=== PATIENT | male | born 1945 | race Two or more races ===

== ENCOUNTER 2018-04-05 18:59 | Inpatient (IN) | payer MEDICARE, MEDICAID ==
[~2018-04-05] VITALS: Ht 175.3 cm; Wt 61.5 kg
[~2018-04-05 18:59] MED LIST: ALBU18HF INH; AMLO10TA6 PO; ASPI-650 PO; ATOR40TA78 PO; CHOL2400 PO; FURO-93 PO; INSU100I18 SQ-INSULIN; INSU100V8 SQ; IRON1TAB62 PO; LEVO75TA PO; LISI-420 PO; LISI5TAB7 PO; METO25TA35 PO; METO25TA4 PO
[2018-04-05] MEDS ORDERED: ASPIRIN 81 MG TABLET CHEW PO ONE (19:30)
[2018-04-05] MEDS ORDERED: SODIUM CHLORIDE FLUSH 10ML SYR IVF ONE (19:30)
[2018-04-05] MEDS ORDERED: ONDANSETRON ODT 4 MG PO ONE (19:30)
[2018-04-05 19:51] LABS: BASOPHILS # (AUTO) 0.04 x10^3/uL (0-0.1); BASOPHILS % (AUTO) 1 % (0-1); EOSINOPHILS # (AUTO) 0.12 x10^3/uL (0-0.4); EOSINOPHILS % (AUTO) 2 % (1-7); LYMPHOCYTES # (AUTO) 1.63 x10^3/uL (1-3.4); LYMPHOCYTES % (AUTO) 26 % (22-44); MD NO; MEAN CORPUSCULAR HEMOGLOBIN 30.5 pg (27.5-34.5); MEAN CORPUSCULAR HGB CONC 34.1 g/dL (33.2-36.2); MEAN CORPUSCULAR VOLUME 89.7 fL (81-97); MEAN PLATELET VOLUME 11.1 fL (7.4-10.4); MONOCYTES # (AUTO) 0.56 x10^3/uL (0.2-0.8); MONOCYTES % (AUTO) 9 % (2-9); NEUTROPHILS % (AUTO) 63 % (42-75); PLATELET COUNT 117 x10^3/uL (130-400); RED BLOOD COUNT 3.66 x10^6/uL (4.38-5.82)
[2018-04-05 20:02] LABS: INTERNATIONAL NORMALIZED RATIO 1.06 (0.93-1.1)
[2018-04-05 20:04] LABS: ALBUMIN 3.1 g/dL (3.4-5.0); ANION GAP 12 mmol/L (5-15); CALCIUM 8.5 mg/dL (8.5-10.1); CHLORIDE 107 mmol/L (98-107)
[2018-04-05 20:10] LABS: ALANINE AMINOTRANSFERASE 27 U/L (12-78); ALKALINE PHOSPHATASE 117 U/L (45-117); BILIRUBIN,TOTAL 0.5 mg/dL (0.2-1.0); CREATININE 5.77 mg/dL (0.7-1.3); TOTAL PROTEIN 6.7 g/dL (6.4-8.2); TROPONIN I 0.078 ng/mL (0.000-0.045)
[2018-04-05] MEDS ORDERED: ONDANSETRON ODT 4 MG ONE (20:12)
[2018-04-05] MEDS ORDERED: ASPIRIN 81 MG TABLET CHEW ONE (20:12)
[2018-04-05] MEDS ORDERED: ATOR40TA78 PO (20:50)
[2018-04-05] MEDS ORDERED: METO25TA2 PO (20:50)
[2018-04-05] MEDS ORDERED: TAMS-11 PO (20:50)
[2018-04-05] MEDS ORDERED: FINA5TAB PO (20:50)
[2018-04-05] MEDS ORDERED: TRAZ150T62 PO (20:50)
[2018-04-05] MEDS ORDERED: POLY17PO5 PO (20:50)
[2018-04-05] MEDS ORDERED: SODIUM BICARBONATE 8.4% 100 MEQ in SODIUM CHLORIDE 0.45% 1,000 ML IV SCH (21:00)
[2018-04-05 21:06] LABS: MICROSCOPIC AUTO
[2018-04-05 21:08] LABS: CULTURE INDICATED? YES
[2018-04-05] MEDS ORDERED: CEFTRIAXONE 1,000 MG in SODIUM CHLORIDE 0.9% 50 ML IV ONE (21:30)
[2018-04-05] MEDS: INSULIN LISPRO 100 UNITS/ML, PEN SQ-INSULIN SCH (22:00)
[2018-04-05] MEDS ORDERED: POLYETHYLENE GLYCOL 17 GM PACKET PO PRN (22:00)
[2018-04-05] MEDS: SODIUM BICARB 8.4%,50ML SYR. 100 MEQ in SODIUM CHLORIDE 0.45% 1,000 ML IV SCH (22:00)
[2018-04-05] MEDS ORDERED: NITROGLYCERIN 0.4 MG BOTTLE (25 TABS) SL PRN (22:00)
[2018-04-05] MEDS ORDERED: ONDANSETRON ODT 4 MG PO PRN (22:00)
[2018-04-05] MEDS: HEPARIN 5,000 UNITS/ML, 1ML SQ SCH (22:00)
[2018-04-05] MEDS: MULTIVITAMINS WITH IRON TABLET PO SCH (22:00)
[2018-04-05] MEDS ORDERED: morphine SULFATE 10 MG/ML, 1ML IVPush PRN (22:00)
[2018-04-05 22:45] VITALS: BP 147/82
[2018-04-05 22:50] LABS: HEMOGLOBIN A1C 7.5 % (4.2-6.3)
[2018-04-06 00:32] VITALS: BP 143/84
[2018-04-06] MEDS: CEFTRIAXONE 1,000 MG in SODIUM CHLORIDE 0.9% 50 ML IV SCH (01:25)
[2018-04-06] MEDS: TRAZODONE 150MG TABLET PO SCH ×2 (02:50→23:22)
[2018-04-06] MEDS: INSULIN LISPRO 100 UNITS/ML, PEN SQ-INSULIN SCH ×5 (04:00→23:23)
[2018-04-06] MEDS: HEPARIN 5,000 UNITS/ML, 1ML SQ SCH ×3 (04:56→23:23)
[2018-04-06] MEDS: SODIUM BICARB 8.4%,50ML SYR. 100 MEQ in SODIUM CHLORIDE 0.45% 1,000 ML IV SCH (06:46)
[2018-04-06 07:15] VITALS: BP 151/79
[2018-04-06 07:50] LABS: BASOPHILS # (AUTO) 0.03 x10^3/uL (0-0.1); BASOPHILS % (AUTO) 1 % (0-1); EOSINOPHILS % (AUTO) 2 % (1-7); LYMPHOCYTES # (AUTO) 1.98 x10^3/uL (1-3.4); LYMPHOCYTES % (AUTO) 31 % (22-44); MD NO; MEAN CORPUSCULAR HEMOGLOBIN 29.8 pg (27.5-34.5); MEAN CORPUSCULAR HGB CONC 33.7 g/dL (33.2-36.2); MEAN CORPUSCULAR VOLUME 88.4 fL (81-97); MEAN PLATELET VOLUME 10.8 fL (7.4-10.4); MONOCYTES # (AUTO) 0.49 x10^3/uL (0.2-0.8); MONOCYTES % (AUTO) 8 % (2-9); NEUTROPHILS # (AUTO) 3.79 x10^3/uL (1.8-6.8); NEUTROPHILS % (AUTO) 59 % (42-75); PLATELET COUNT 116 x10^3/uL (130-400); RED CELL DISTRIBUTION WIDTH 13.9 % (9.4-14.8)
[2018-04-06] MEDS ORDERED: REGADENOSON 0.4 MG/5 ML SYRINGE ONE (07:57)
[2018-04-06 08:01] LABS: ALANINE AMINOTRANSFERASE 27 U/L (12-78); ALBUMIN 3.1 g/dL (3.4-5.0); ANION GAP 15 mmol/L (5-15); CALCIUM 8.2 mg/dL (8.5-10.1); CHLORIDE 106 mmol/L (98-107)
[2018-04-06 08:04] LABS: ALKALINE PHOSPHATASE 102 U/L (45-117); BILIRUBIN,TOTAL 0.3 mg/dL (0.2-1.0); CREATININE 5.04 mg/dL (0.7-1.3); TOTAL PROTEIN 6.7 g/dL (6.4-8.2)
[2018-04-06] MEDS: LEVOTHYROXINE 75 MCG TABLET PO SCH (08:48)
[2018-04-06] MEDS ORDERED: CHOLECALCIFEROL 1,000 UNIT TABLET PO SCH (09:00)
[2018-04-06] MEDS: METOPROLOL TARTRATE 25 MG TABLET PO SCH ×2 (10:12→16:52)
[2018-04-06] MEDS: MULTIVITAMINS WITH IRON TABLET PO SCH ×2 (10:12→23:22)
[2018-04-06] MEDS: TAMSULOSIN 0.4 MG CAP.ER.24H PO SCH (10:12)
[2018-04-06] MEDS: ASPIRIN 325 MG TABLET EC PO SCH (10:12)
[2018-04-06] MEDS: SENNA/DOCUSATE TABLET PO SCH (10:12)
[2018-04-06] MEDS: FINASTERIDE 5 MG TABLET PO SCH (10:12)
[2018-04-06] MEDS: POTASSIUM CHLORIDE IV SCH (11:21)
[2018-04-06] MEDS: SODIUM BICARBONATE IV SCH (11:21)
[2018-04-06] MEDS: DEXTROSE 5% IV SCH (11:21)
[2018-04-06 13:47] LABS: TROPONIN I 0.114 ng/mL (0.000-0.045)
[2018-04-06 14:44] VITALS: BP 147/76
[2018-04-06 20:27] VITALS: BP 166/67
[2018-04-07 00:19] VITALS: BP 157/64
[2018-04-07] MEDS: SODIUM BICARBONATE IV SCH ×2 (00:23→09:35)
[2018-04-07] MEDS: POTASSIUM CHLORIDE IV SCH ×2 (00:23→09:35)
[2018-04-07] MEDS: DEXTROSE 5% IV SCH (00:23)
[2018-04-07] MEDS: CEFTRIAXONE 1,000 MG in SODIUM CHLORIDE 0.9% 50 ML IV SCH (01:04)
[2018-04-07 05:51] LABS: BASOPHILS # (AUTO) 0.02 x10^3/uL (0-0.1); BASOPHILS % (AUTO) 0 % (0-1); EOSINOPHILS # (AUTO) 0.09 x10^3/uL (0-0.4); EOSINOPHILS % (AUTO) 2 % (1-7); LYMPHOCYTES # (AUTO) 0.91 x10^3/uL (1-3.4); LYMPHOCYTES % (AUTO) 18 % (22-44); MD NO; MEAN CORPUSCULAR HEMOGLOBIN 30.2 pg (27.5-34.5); MEAN CORPUSCULAR HGB CONC 33.9 g/dL (33.2-36.2); MEAN CORPUSCULAR VOLUME 89.1 fL (81-97); MEAN PLATELET VOLUME 10.9 fL (7.4-10.4); MONOCYTES # (AUTO) 0.45 x10^3/uL (0.2-0.8); MONOCYTES % (AUTO) 9 % (2-9); NEUTROPHILS # (AUTO) 3.77 x10^3/uL (1.8-6.8); NEUTROPHILS % (AUTO) 72 % (42-75); PLATELET COUNT 101 x10^3/uL (130-400); RED BLOOD COUNT 3.64 x10^6/uL (4.38-5.82)
[2018-04-07 05:57] LABS: ALBUMIN 2.6 g/dL (3.4-5.0); CHLORIDE 103 mmol/L (98-107)
[2018-04-07] MEDS: LEVOTHYROXINE 75 MCG TABLET PO SCH (05:59)
[2018-04-07] MEDS: ACETAMINOPHEN 325 MG TABLET PO PRN ×2 (05:59→21:27)
[2018-04-07] MEDS: METOPROLOL TARTRATE 25 MG TABLET PO SCH ×2 (05:59→17:45)
[2018-04-07 06:03] VITALS: BP 143/73
[2018-04-07 06:11] LABS: % IRON SATURATION 43 % (20-55); ALANINE AMINOTRANSFERASE 28 U/L (12-78); ALKALINE PHOSPHATASE 139 U/L (45-117); ANION GAP 6 mmol/L (5-15); BILIRUBIN,TOTAL 0.3 mg/dL (0.2-1.0); CALCIUM 7.7 mg/dL (8.5-10.1); CREATININE 4.58 mg/dL (0.7-1.3); IRON LEVEL 97 mcg/dL (65-175); TOTAL IRON BINDING CAPACITY 224 mcg/dL (250-450); TOTAL PROTEIN 5.9 g/dL (6.4-8.2)
[2018-04-07] MEDS ORDERED: ERGOCALCIFEROL 50,000 UNIT CAPSULE PO SCH (07:30)
[2018-04-07] MEDS ORDERED: SODIUM BICARBONATE IV SCH (07:30)
[2018-04-07] MEDS ORDERED: POTASSIUM CHLORIDE IV SCH (07:30)
[2018-04-07] MEDS ORDERED: [UNRECOGNIZED DRUG - OTHER] IV SCH (07:30)
[2018-04-07] MEDS: SENNA/DOCUSATE TABLET PO SCH (09:00)
[2018-04-07 09:23] VITALS: BP 174/75
[2018-04-07] MEDS: [UNRECOGNIZED DRUG - OTHER] IV SCH (09:35)
[2018-04-07] MEDS: AMLODIPINE 5 MG TABLET PO SCH (09:35)
[2018-04-07] MEDS: TAMSULOSIN 0.4 MG CAP.ER.24H PO SCH (09:36)
[2018-04-07] MEDS: ASPIRIN 325 MG TABLET EC PO SCH (09:36)
[2018-04-07] MEDS: CALCITRIOL 0.25 MCG CAPSULE PO SCH (09:54)
[2018-04-07] MEDS: FINASTERIDE 5 MG TABLET PO SCH (09:54)
[2018-04-07] MEDS: MULTIVITAMINS WITH IRON TABLET PO SCH ×2 (09:54→21:27)
[2018-04-07] MEDS: INSULIN LISPRO 100 UNITS/ML, PEN SQ-INSULIN SCH ×4 (09:54→21:00)
[2018-04-07] MEDS: HEPARIN 5,000 UNITS/ML, 1ML SQ SCH ×2 (09:55→17:42)
[2018-04-07 14:59] VITALS: BP 92/57
[2018-04-07 17:46] VITALS: BP 101/58
[2018-04-07 18:42] VITALS: BP 129/57
[2018-04-07] MEDS: TRAZODONE 150MG TABLET PO SCH (21:28)
[2018-04-08] MEDS: CEFTRIAXONE 1,000 MG in SODIUM CHLORIDE 0.9% 50 ML IV SCH (00:17)
[2018-04-08] MEDS: HEPARIN 5,000 UNITS/ML, 1ML SQ SCH ×3 (00:18→16:56)
[2018-04-08 03:59] VITALS: BP 176/68
[2018-04-08 05:26] LABS: ALBUMIN 2.6 g/dL (3.4-5.0); ANION GAP 10 mmol/L (5-15); CALCIUM 7.9 mg/dL (8.5-10.1); CHLORIDE 103 mmol/L (98-107)
[2018-04-08 05:29] LABS: ALANINE AMINOTRANSFERASE 26 U/L (12-78); ALKALINE PHOSPHATASE 90 U/L (45-117); BILIRUBIN,TOTAL 0.3 mg/dL (0.2-1.0); CREATININE 4.49 mg/dL (0.7-1.3); TOTAL PROTEIN 5.8 g/dL (6.4-8.2)
[2018-04-08] MEDS: SODIUM BICARBONATE IV SCH (05:30)
[2018-04-08] MEDS: [UNRECOGNIZED DRUG - OTHER] IV SCH (05:30)
[2018-04-08] MEDS: POTASSIUM CHLORIDE IV SCH (05:30)
[2018-04-08] MEDS: INSULIN LISPRO 100 UNITS/ML, PEN SQ-INSULIN SCH ×4 (06:25→20:54)
[2018-04-08 07:36] VITALS: BP 178/68
[2018-04-08] MEDS: AMLODIPINE 5 MG TABLET PO SCH (09:07)
[2018-04-08] MEDS: TAMSULOSIN 0.4 MG CAP.ER.24H PO SCH (09:07)
[2018-04-08] MEDS: ASPIRIN 325 MG TABLET EC PO SCH (09:07)
[2018-04-08] MEDS: LEVOTHYROXINE 75 MCG TABLET PO SCH (09:07)
[2018-04-08] MEDS: SENNA/DOCUSATE TABLET PO SCH (09:07)
[2018-04-08] MEDS: MULTIVITAMINS WITH IRON TABLET PO SCH ×2 (09:07→20:54)
[2018-04-08] MEDS: FINASTERIDE 5 MG TABLET PO SCH (09:07)
[2018-04-08] MEDS: SODIUM CHLORIDE 0.9% 1,000 ML IV SCH ×2 (09:07→22:58)
[2018-04-08 12:35] VITALS: BP 172/67
[2018-04-08] MEDS: hydrALAzine 20 MG/ML, 1ML IV PRN (14:06)
[2018-04-08 15:04] VITALS: BP 129/70
[2018-04-08] MEDS: METOPROLOL TARTRATE 25 MG TABLET PO SCH (16:57)
[2018-04-08 20:11] VITALS: BP 145/68
[2018-04-08] MEDS: TRAZODONE 150MG TABLET PO SCH (20:54)
[2018-04-09] MEDS: CEFTRIAXONE 1,000 MG in SODIUM CHLORIDE 0.9% 50 ML IV SCH (01:19)
[2018-04-09] MEDS: HEPARIN 5,000 UNITS/ML, 1ML SQ SCH (01:20)
[2018-04-09 02:35] VITALS: BP 150/76
[2018-04-09 06:05] VITALS: BP 165/61
[2018-04-09] MEDS: LEVOTHYROXINE 75 MCG TABLET PO SCH (06:06)
[2018-04-09] MEDS: METOPROLOL TARTRATE 25 MG TABLET PO SCH ×2 (06:06→17:44)
[2018-04-09 06:49] VITALS: BP 155/56
[2018-04-09 06:57] LABS: ALBUMIN 2.9 g/dL (3.4-5.0); ANION GAP 9 mmol/L (5-15); CALCIUM 8.3 mg/dL (8.5-10.1); CHLORIDE 106 mmol/L (98-107)
[2018-04-09 07:03] LABS: ALANINE AMINOTRANSFERASE 27 U/L (12-78); ALKALINE PHOSPHATASE 87 U/L (45-117); BILIRUBIN,TOTAL 0.3 mg/dL (0.2-1.0); CREATININE 4.15 mg/dL (0.7-1.3); TOTAL PROTEIN 6.2 g/dL (6.4-8.2)
[2018-04-09] MEDS: SENNA/DOCUSATE TABLET PO SCH (10:04)
[2018-04-09] MEDS: CALCITRIOL 0.25 MCG CAPSULE PO SCH (10:04)
[2018-04-09] MEDS: FINASTERIDE 5 MG TABLET PO SCH (10:04)
[2018-04-09] MEDS: MULTIVITAMINS WITH IRON TABLET PO SCH ×2 (10:04→20:54)
[2018-04-09] MEDS: TAMSULOSIN 0.4 MG CAP.ER.24H PO SCH (10:05)
[2018-04-09] MEDS: AMLODIPINE 5 MG TABLET PO SCH (10:05)
[2018-04-09] MEDS: ASPIRIN 325 MG TABLET EC PO SCH (10:05)
[2018-04-09] MEDS: INSULIN LISPRO 100 UNITS/ML, PEN SQ-INSULIN SCH ×4 (10:06→20:55)
[2018-04-09] MEDS: SODIUM CHLORIDE 0.9% 1,000 ML IV SCH (12:05)
[2018-04-09 15:25] VITALS: BP 152/61
[2018-04-09] MEDS: TRAZODONE 150MG TABLET PO SCH (20:54)
[2018-04-09 21:04] VITALS: BP 168/72
[2018-04-09] MEDS: hydrALAzine 20 MG/ML, 1ML IV PRN (21:46)
[2018-04-10 00:19] VITALS: BP 123/64
[2018-04-10] MEDS: CEFTRIAXONE 1,000 MG in SODIUM CHLORIDE 0.9% 50 ML IV SCH (01:11)
[2018-04-10] MEDS: SODIUM CHLORIDE 0.9% 1,000 ML IV SCH ×2 (01:12→15:50)
[2018-04-10 06:03] LABS: MEAN CORPUSCULAR HEMOGLOBIN 30.1 pg (27.5-34.5); MEAN CORPUSCULAR HGB CONC 33.7 g/dL (33.2-36.2); MEAN CORPUSCULAR VOLUME 89.1 fL (81-97); MEAN PLATELET VOLUME 10.3 fL (7.4-10.4); PLATELET COUNT 97 x10^3/uL (130-400); RED BLOOD COUNT 3.15 x10^6/uL (4.38-5.82); RED CELL DISTRIBUTION WIDTH 14.4 % (9.4-14.8)
[2018-04-10 06:04] LABS: ALBUMIN 2.5 g/dL (3.4-5.0); ANION GAP 10 mmol/L (5-15); CALCIUM 8.3 mg/dL (8.5-10.1); CHLORIDE 112 mmol/L (98-107); CREATININE 3.93 mg/dL (0.7-1.3)
[2018-04-10 06:26] LABS: BASOPHILS # (AUTO) 0.04 x10^3/uL (0-0.1); BASOPHILS % (AUTO) 1 % (0-1); EOSINOPHILS # (AUTO) 0.17 x10^3/uL (0-0.4); EOSINOPHILS % (AUTO) 3 % (1-7); LYMPHOCYTES # (AUTO) 1.22 x10^3/uL (1-3.4); LYMPHOCYTES % (AUTO) 18 % (22-44); MD SCAN; MONOCYTES # (AUTO) 0.62 x10^3/uL (0.2-0.8); MONOCYTES % (AUTO) 9 % (2-9); NEUTROPHILS % (AUTO) 70 % (42-75)
[2018-04-10] MEDS: INSULIN LISPRO 100 UNITS/ML, PEN SQ-INSULIN SCH ×4 (07:00→20:47)
[2018-04-10 07:09] VITALS: BP 160/72
[2018-04-10 07:10] VITALS: BP 144/41
[2018-04-10] MEDS ORDERED: MAGNESIUM SULFATE PMX 2GM/50ML 50 ML IV ONE (08:00)
[2018-04-10] MEDS ORDERED: PIPERACILLIN/TAZO/PMX 3.375GM 50 ML IV SCH (09:00)
[2018-04-10] MEDS ORDERED: PHARMACY MAY ADJ FOR RENAL FX MC PRN (09:00)
[2018-04-10] MEDS: SENNA/DOCUSATE TABLET PO SCH (09:26)
[2018-04-10] MEDS: MULTIVITAMINS WITH IRON TABLET PO SCH ×2 (09:26→20:46)
[2018-04-10] MEDS: FINASTERIDE 5 MG TABLET PO SCH (09:26)
[2018-04-10] MEDS: LEVOTHYROXINE 75 MCG TABLET PO SCH (09:26)
[2018-04-10] MEDS: ASPIRIN 325 MG TABLET EC PO SCH (09:27)
[2018-04-10] MEDS: TAMSULOSIN 0.4 MG CAP.ER.24H PO SCH (09:27)
[2018-04-10] MEDS: AMLODIPINE 5 MG TABLET PO SCH (09:32)
[2018-04-10 13:50] VITALS: BP 131/56
[2018-04-10] MEDS: PIPERACILLIN/TAZO/PMX 2.25GM 50 ML IV SCH (15:50)
[2018-04-10 19:41] VITALS: BP 132/75
[2018-04-10] MEDS: TRAZODONE 150MG TABLET PO SCH (20:47)
[2018-04-11] MEDS: PIPERACILLIN/TAZO/PMX 2.25GM 50 ML IV SCH (00:05)
[2018-04-11 02:41] VITALS: BP 163/72
[2018-04-11] MEDS: SODIUM CHLORIDE 0.9% 1,000 ML IV SCH (05:33)
[2018-04-11] MEDS: LEVOTHYROXINE 75 MCG TABLET PO SCH (05:33)
[2018-04-11 06:07] LABS: ANION GAP 11 mmol/L (5-15); CHLORIDE 111 mmol/L (98-107); CREATININE 3.71 mg/dL (0.7-1.3)
[2018-04-11 06:13] LABS: MEAN CORPUSCULAR HEMOGLOBIN 29.8 pg (27.5-34.5); MEAN CORPUSCULAR HGB CONC 33.3 g/dL (33.2-36.2); MEAN CORPUSCULAR VOLUME 89.3 fL (81-97); RED BLOOD COUNT 3.05 x10^6/uL (4.38-5.82); RED CELL DISTRIBUTION WIDTH 14.2 % (9.4-14.8)
[2018-04-11 06:41] LABS: MEAN PLATELET VOLUME 10.1 fL (7.4-10.4); PLATELET COUNT 87 x10^3/uL (130-400)
[2018-04-11 06:44] LABS: BASOPHILS # (AUTO) 0.03 x10^3/uL (0-0.1); BASOPHILS % (AUTO) 0 % (0-1); EOSINOPHILS # (AUTO) 0.25 x10^3/uL (0-0.4); EOSINOPHILS % (AUTO) 4 % (1-7); LYMPHOCYTES # (AUTO) 1.72 x10^3/uL (1-3.4); LYMPHOCYTES % (AUTO) 29 % (22-44); MD SCAN; MONOCYTES # (AUTO) 0.61 x10^3/uL (0.2-0.8); MONOCYTES % (AUTO) 10 % (2-9); NEUTROPHILS # (AUTO) 3.24 x10^3/uL (1.8-6.8); NEUTROPHILS % (AUTO) 56 % (42-75)
[2018-04-11] MEDS: INSULIN LISPRO 100 UNITS/ML, PEN SQ-INSULIN SCH ×2 (07:00→11:57)
[2018-04-11 07:02] VITALS: BP 144/59
[2018-04-11] MEDS ORDERED: PIPERACILLIN/TAZO 2.25 GM in SODIUM CHLORIDE 0.9% 50 ML IV SCH (07:30)
[2018-04-11] MEDS: MULTIVITAMINS WITH IRON TABLET PO SCH (09:59)
[2018-04-11] MEDS: FINASTERIDE 5 MG TABLET PO SCH (09:59)
[2018-04-11] MEDS: SENNA/DOCUSATE TABLET PO SCH (09:59)
[2018-04-11] MEDS: AMLODIPINE 5 MG TABLET PO SCH (09:59)
[2018-04-11] MEDS: ASPIRIN 325 MG TABLET EC PO SCH (09:59)
[2018-04-11] MEDS: TAMSULOSIN 0.4 MG CAP.ER.24H PO SCH (09:59)
[2018-04-11] MEDS: CALCITRIOL 0.25 MCG CAPSULE PO SCH (09:59)
[2018-04-11 12:50] VITALS: BP 164/71
[2018-04-11] MEDS ORDERED: ERGO500017 PO (15:34)
[2018-04-11] MEDS ORDERED: AMLO5TAB7 PO (15:34)
[2018-04-11] MEDS ORDERED: CALC0.5C9 PO (15:34)
[2018-04-11] MEDS ORDERED: CIPR250T27 PO (15:34)
[2018-04-12] MEDS ORDERED: AMLODIPINE 5 MG TABLET PO SCH (09:00)
[2018-04-13] MEDS ORDERED: CALCITRIOL 0.5 MCG CAPSULE PO SCH (09:00)
== END 2018-04-11 16:40 | disposition home or self-care (01) | DRG 689 ==
LOC: ED 21:12 → 5SO 21:13 → 4EST 04-08 12:04 → DCLOUNGE 04-11 16:19
PROVIDERS: ADMIT Internal Medicine; ATTEND Internal Medicine
DX: N39.0 Urinary tract infection, site not specified (principal); N17.0 Acute kidney failure with tubular necrosis; I13.0 Hypertensive heart and chronic kidney disease with heart failure and stage 1 through stage 4 chronic kidney disease, or unspecified chronic kidney disease; I50.22 Chronic systolic (congestive) heart failure; E87.1 Hypo-osmolality and hyponatremia; E44.0 Moderate protein-calorie malnutrition; E87.2 Acidosis; N18.4 Chronic kidney disease, stage 4 (severe); D63.1 Anemia in chronic kidney disease; E11.22 Type 2 diabetes mellitus with diabetic chronic kidney disease; E11.42 Type 2 diabetes mellitus with diabetic polyneuropathy; E86.0 Dehydration; H54.7 Unspecified visual loss; Z95.0 Presence of cardiac pacemaker; D69.6 Thrombocytopenia, unspecified; N31.9 Neuromuscular dysfunction of bladder, unspecified; E11.51 Type 2 diabetes mellitus with diabetic peripheral angiopathy without gangrene; E03.9 Hypothyroidism, unspecified; Z83.3 Family history of diabetes mellitus; Z89.511 Acquired absence of right leg below knee; Z68.20 Body mass index [BMI] 20.0-20.9, adult
CPT/HCPCS: 36415; 71045; 76770; 80048; 80053; 80069; 81001; 82306; 82728; 82962; 83036; 83540; 83550; 83735; 83970; 84100; 84443; 84484; 84550; 85025; 85610; 85730; 87077; 87086; 87186; 93005; 93306; 99285; G0378; J0696; J1644; J2543; J2785; J3480; J7070; Q0162; J0360; J1815; J3475; J7030

== ENCOUNTER 2018-06-02 18:08 | Emergency (ER) | payer MEDICARE, MEDICAID ==
[~2018-06-02] VITALS: Ht 160 cm; Wt 64.0 kg
[~2018-06-02 18:08] MED LIST changes: +AMLO5TAB7 PO; +CALC0.5C9 PO; +CIPR250T27 PO; +ERGO500017 PO; +FINA5TAB PO; +METO25TA2 PO; +POLY17PO5 PO; +TAMS-11 PO; +TRAZ150T62 PO
[2018-06-02] MEDS ORDERED: HYDROcodone/APAP 5/325 TABLET PO ONE (19:00)
[2018-06-02] MEDS ORDERED: BACITRACIN ZINC OINT 500U/GM, 0.9 GM ONE (19:20)
[2018-06-02] MEDS ORDERED: HYDROcodone/APAP 5/325 TABLET ONE (19:43)
[2018-06-02 20:42] VITALS: BP 122/40
== END 2018-06-02 20:46 | disposition home or self-care (01) ==
LOC: ED 19:52
DX: S80.812A Abrasion, left lower leg, initial encounter (principal); I10 Essential (primary) hypertension; E11.9 Type 2 diabetes mellitus without complications; I25.2 Old myocardial infarction; Z95.0 Presence of cardiac pacemaker; W19.XXXA Unspecified fall, initial encounter; Y93.89 Activity, other specified; Y99.8 Other external cause status; Y92.89 Other specified places as the place of occurrence of the external cause; Z87.891 Personal history of nicotine dependence
CPT/HCPCS: 99283

== ENCOUNTER 2018-06-11 08:32 | Inpatient (IN) | payer MEDICARE, MEDICAID ==
[~2018-06-11] VITALS: Ht 165.1 cm; Wt 54.6 kg
[2018-06-11 09:25] LABS: MICROSCOPIC AUTO
[2018-06-11 09:30] LABS: CULTURE INDICATED? NO
[2018-06-11] MEDS ORDERED: ASPIRIN 81 MG TABLET CHEW ONE (10:26)
[2018-06-11] MEDS ORDERED: ASPIRIN 81 MG TABLET CHEW PO ONE (10:30)
[2018-06-11 10:40] LABS: BASOPHILS # (AUTO) 0.04 x10^3/uL (0-0.1); BASOPHILS % (AUTO) 1 % (0-1); EOSINOPHILS # (AUTO) 0.09 x10^3/uL (0-0.4); EOSINOPHILS % (AUTO) 1 % (1-7); LYMPHOCYTES # (AUTO) 1.45 x10^3/uL (1-3.4); LYMPHOCYTES % (AUTO) 23 % (22-44); MD NO; MEAN CORPUSCULAR HEMOGLOBIN 29.1 pg (27.5-34.5); MEAN CORPUSCULAR HGB CONC 32.4 g/dL (33.2-36.2); MEAN CORPUSCULAR VOLUME 89.8 fL (81-97); MEAN PLATELET VOLUME 10.2 fL (7.4-10.4); MONOCYTES # (AUTO) 0.44 x10^3/uL (0.2-0.8); MONOCYTES % (AUTO) 7 % (2-9); NEUTROPHILS # (AUTO) 4.45 x10^3/uL (1.8-6.8); NEUTROPHILS % (AUTO) 69 % (42-75); PLATELET COUNT 100 x10^3/uL (130-400); RED BLOOD COUNT 3.92 x10^6/uL (4.38-5.82); RED CELL DISTRIBUTION WIDTH 14.6 % (9.4-14.8)
[2018-06-11 10:53] LABS: ALBUMIN 3.7 g/dL (3.4-5.0); ANION GAP 11 mmol/L (5-15); CALCIUM 8.7 mg/dL (8.5-10.1); CHLORIDE 109 mmol/L (98-107)
[2018-06-11 10:56] LABS: TROPONIN I 0.066 ng/mL (0.000-0.045)
[2018-06-11 11:26] LABS: INTERNATIONAL NORMALIZED RATIO 1.05 (0.93-1.1); PROTHROMBIN TIME 11.1 Seconds (9.6-11.5)
[2018-06-11] MEDS ORDERED: SODIUM CHLORIDE 0.9% 1,000ML IVBOLUS ONE (12:00)
[2018-06-11] MEDS ORDERED: SODIUM CHLORIDE 0.9% 1,000 ML IV ONE (12:00)
[2018-06-11] MEDS ORDERED: SODIUM CHLORIDE FLUSH 10ML SYR IVF ONE (12:00)
[2018-06-11] MEDS: SODIUM CHLORIDE 0.9% 1,000 ML IV SCH ×2 (12:06→20:14)
[2018-06-11] MEDS ORDERED: POLYETHYLENE GLYCOL 17 GM PACKET PO PRN ×2 (12:30)
[2018-06-11] MEDS: AMLODIPINE 10 MG TAB PO SCH (12:30)
[2018-06-11] MEDS ORDERED: ONDANSETRON 2MG/ML, 2ML IVPush PRN (12:30)
[2018-06-11] MEDS ORDERED: ACETAMINOPHEN 325 MG TABLET PO PRN (12:30)
[2018-06-11] MEDS: TAMSULOSIN 0.4 MG CAP.ER.24H PO SCH (12:30)
[2018-06-11] MEDS: INSULIN GLARGINE 100 UNITS/ML, PEN SQ-INSULIN SCH ×2 (12:30→21:00)
[2018-06-11] MEDS ORDERED: LEVO75TA5 PO (14:10)
[2018-06-11] MEDS ORDERED: LISI5TAB7 PO (14:11)
[2018-06-11] MEDS: INSULIN LISPRO 100 UNITS/ML, PEN LOW DOSE SS SQ-INSULIN SCH ×2 (14:14→20:25)
[2018-06-11 14:18] LABS: TROPONIN I 0.066 ng/mL (0.000-0.045)
[2018-06-11 14:31] VITALS: BP 135/69
[2018-06-11] MEDS ORDERED: TEMPLATE NON-FORMULARY MED. (Insulin Aspart (Novolog) 0 UNITS) SQ-INSULIN SCH (16:00)
[2018-06-11] MEDS ORDERED: FURO20TA3 PO (16:03)
[2018-06-11 19:36] VITALS: BP 142/68
[2018-06-11] MEDS: HEPARIN 5,000 UNITS/ML, 1ML SQ SCH (20:14)
[2018-06-11] MEDS: [UNRECOGNIZED DRUG - MIXTURE] PO SCH (20:15)
[2018-06-11] MEDS: ATORVASTATIN 40 MG TABLET PO SCH (20:22)
[2018-06-11] MEDS: TRAZODONE 150MG TABLET PO SCH (20:22)
[2018-06-11] MEDS: SODIUM BICARBONATE 650 MG TABLET PO SCH (22:44)
[2018-06-12 01:58] VITALS: BP 121/72
[2018-06-12] MEDS ORDERED: LEVOTHYROXINE 75 MCG TABLET PO SCH (06:00)
[2018-06-12 06:40] VITALS: BP 109/72
[2018-06-12] MEDS: INSULIN LISPRO 100 UNITS/ML, PEN LOW DOSE SS SQ-INSULIN SCH ×4 (07:00→21:00)
[2018-06-12] MEDS: SODIUM CHLORIDE 0.9% 1,000 ML IV SCH (08:06)
[2018-06-12] MEDS: [UNRECOGNIZED DRUG - MIXTURE] PO SCH ×2 (08:12→21:00)
[2018-06-12] MEDS: ASPIRIN 325 MG TABLET EC PO SCH (08:15)
[2018-06-12] MEDS: SODIUM BICARBONATE 650 MG TABLET PO SCH ×3 (08:15→17:36)
[2018-06-12] MEDS: TAMSULOSIN 0.4 MG CAP.ER.24H PO SCH (08:15)
[2018-06-12] MEDS: METOPROLOL SUCCINATE 25 MG TAB.ER.24H PO SCH (08:16)
[2018-06-12] MEDS: AMLODIPINE 10 MG TAB PO SCH (08:16)
[2018-06-12] MEDS: LEVOTHYROXINE 75 MCG TABLET PO SCH (08:16)
[2018-06-12] MEDS: HEPARIN 5,000 UNITS/ML, 1ML SQ SCH ×2 (08:17→21:00)
[2018-06-12] MEDS: FINASTERIDE 5 MG TABLET PO SCH (08:17)
[2018-06-12 08:53] LABS: ALANINE AMINOTRANSFERASE 27 U/L (12-78); ALBUMIN 3.3 g/dL (3.4-5.0); ANION GAP 10 mmol/L (5-15); CALCIUM 8.6 mg/dL (8.5-10.1); CHLORIDE 114 mmol/L (98-107)
[2018-06-12 08:59] LABS: MEAN CORPUSCULAR HEMOGLOBIN 29.5 pg (27.5-34.5); MEAN CORPUSCULAR HGB CONC 32.8 g/dL (33.2-36.2); MEAN CORPUSCULAR VOLUME 89.9 fL (81-97); MEAN PLATELET VOLUME 10.5 fL (7.4-10.4); PLATELET COUNT 99 x10^3/uL (130-400); RED BLOOD COUNT 3.56 x10^6/uL (4.38-5.82); RED CELL DISTRIBUTION WIDTH 14.6 % (9.4-14.8)
[2018-06-12] MEDS ORDERED: CHOLECALCIFEROL 1,000 UNIT TABLET PO SCH (09:00)
[2018-06-12 09:02] LABS: % IRON SATURATION 38 % (20-55); ALKALINE PHOSPHATASE 85 U/L (45-117); BILIRUBIN,TOTAL 0.4 mg/dL (0.2-1.0); CREATININE 5.86 mg/dL (0.7-1.3); IRON LEVEL 82 mcg/dL (65-175); TOTAL IRON BINDING CAPACITY 213 mcg/dL (250-450); TOTAL PROTEIN 6.9 g/dL (6.4-8.2)
[2018-06-12 11:19] LABS: BASOPHILS # (AUTO) 0.03 x10^3/uL (0-0.1); BASOPHILS % (AUTO) 1 % (0-1); EOSINOPHILS # (AUTO) 0.11 x10^3/uL (0-0.4); EOSINOPHILS % (AUTO) 2 % (1-7); LYMPHOCYTES # (AUTO) 2.17 x10^3/uL (1-3.4); LYMPHOCYTES % (AUTO) 38 % (22-44); MD SCAN; MONOCYTES % (AUTO) 9 % (2-9); NEUTROPHILS # (AUTO) 2.87 x10^3/uL (1.8-6.8); NEUTROPHILS % (AUTO) 51 % (42-75)
[2018-06-12] MEDS ORDERED: ERGOCALCIFEROL 50,000 UNIT CAPSULE PO SCH (12:30)
[2018-06-12 13:00] VITALS: BP 114/65
[2018-06-12 19:27] VITALS: BP 97/60
[2018-06-12] MEDS: INSULIN GLARGINE 100 UNITS/ML, PEN SQ-INSULIN SCH (21:00)
[2018-06-12] MEDS: ATORVASTATIN 40 MG TABLET PO SCH (21:45)
[2018-06-12] MEDS: TRAZODONE 150MG TABLET PO SCH (21:45)
[2018-06-13 01:22] VITALS: BP 116/59
[2018-06-13 05:24] LABS: ALBUMIN 2.9 g/dL (3.4-5.0); ANION GAP 11 mmol/L (5-15); CHLORIDE 111 mmol/L (98-107)
[2018-06-13 05:27] LABS: CREATININE 6.06 mg/dL (0.7-1.3)
[2018-06-13 06:50] VITALS: BP 132/67
[2018-06-13] MEDS: INSULIN LISPRO 100 UNITS/ML, PEN LOW DOSE SS SQ-INSULIN SCH ×4 (07:00→21:00)
[2018-06-13 07:11] LABS: ABSOLUTE RETICS # 0.031 x10^6/uL (0.5-1.5); RED BLOOD COUNT 3.29 x10^6/uL (4.38-5.82); RETICULOCYTE COUNT % 0.93 % (0.5-1.5)
[2018-06-13 07:41] LABS: MEAN CORPUSCULAR HEMOGLOBIN 29.7 pg (27.5-34.5); MEAN CORPUSCULAR HGB CONC 33.2 g/dL (33.2-36.2); MEAN CORPUSCULAR VOLUME 89.6 fL (81-97); MEAN PLATELET VOLUME 10.9 fL (7.4-10.4); PLATELET COUNT 97 x10^3/uL (130-400); RED CELL DISTRIBUTION WIDTH 14.8 % (9.4-14.8)
[2018-06-13 08:02] LABS: BASOPHILS # (AUTO) 0.03 x10^3/uL (0-0.1); BASOPHILS % (AUTO) 1 % (0-1); EOSINOPHILS # (AUTO) 0.13 x10^3/uL (0-0.4); EOSINOPHILS % (AUTO) 2 % (1-7); LYMPHOCYTES # (AUTO) 2.12 x10^3/uL (1-3.4); LYMPHOCYTES % (AUTO) 34 % (22-44); MD SCAN; MONOCYTES % (AUTO) 11 % (2-9); NEUTROPHILS # (AUTO) 3.35 x10^3/uL (1.8-6.8); NEUTROPHILS % (AUTO) 53 % (42-75)
[2018-06-13] MEDS ORDERED: CALCITRIOL 0.5 MCG CAPSULE PO SCH ×2 (09:00)
[2018-06-13] MEDS: HEPARIN 5,000 UNITS/ML, 1ML SQ SCH ×2 (09:00→22:04)
[2018-06-13] MEDS: [UNRECOGNIZED DRUG - MIXTURE] PO SCH ×2 (09:00→21:00)
[2018-06-13] MEDS: SODIUM BICARBONATE 650 MG TABLET PO SCH ×3 (09:04→17:00)
[2018-06-13] MEDS: AMLODIPINE 10 MG TAB PO SCH (09:04)
[2018-06-13] MEDS: TAMSULOSIN 0.4 MG CAP.ER.24H PO SCH (09:04)
[2018-06-13] MEDS: ASPIRIN 325 MG TABLET EC PO SCH (09:04)
[2018-06-13] MEDS: CALCITRIOL 0.25 MCG CAPSULE PO SCH (09:04)
[2018-06-13] MEDS: FINASTERIDE 5 MG TABLET PO SCH (09:04)
[2018-06-13] MEDS: METOPROLOL SUCCINATE 25 MG TAB.ER.24H PO SCH (09:05)
[2018-06-13] MEDS: LEVOTHYROXINE 75 MCG TABLET PO SCH (09:05)
[2018-06-13] MEDS: SODIUM CHLORIDE 0.9% 1,000 ML IV SCH (12:06)
[2018-06-13 13:15] VITALS: BP 119/74
[2018-06-13 17:28] LABS: CLOSTRIDIUM DIFFICILE ANTIGEN NEGATIVE; CLOSTRIDIUM DIFFICILE TOXIN NEGATIVE (Negative)
[2018-06-13 20:08] VITALS: BP 110/60
[2018-06-13] MEDS: TRAZODONE 150MG TABLET PO SCH (21:00)
[2018-06-13] MEDS: ATORVASTATIN 40 MG TABLET PO SCH (22:01)
[2018-06-13] MEDS: INSULIN GLARGINE 100 UNITS/ML, PEN SQ-INSULIN SCH (22:10)
[2018-06-14 01:11] VITALS: BP 103/50
[2018-06-14 06:40] VITALS: BP 103/54
[2018-06-14] MEDS: INSULIN LISPRO 100 UNITS/ML, PEN LOW DOSE SS SQ-INSULIN SCH ×2 (07:00→07:57)
[2018-06-14] MEDS: ASPIRIN 325 MG TABLET EC PO SCH (07:55)
[2018-06-14] MEDS: CALCITRIOL 0.25 MCG CAPSULE PO SCH (07:55)
[2018-06-14] MEDS: METOPROLOL SUCCINATE 25 MG TAB.ER.24H PO SCH (07:55)
[2018-06-14] MEDS: FINASTERIDE 5 MG TABLET PO SCH (07:55)
[2018-06-14] MEDS: SODIUM BICARBONATE 650 MG TABLET PO SCH ×2 (07:55→11:54)
[2018-06-14] MEDS: AMLODIPINE 10 MG TAB PO SCH (07:55)
[2018-06-14] MEDS: TAMSULOSIN 0.4 MG CAP.ER.24H PO SCH (07:56)
[2018-06-14] MEDS: HEPARIN 5,000 UNITS/ML, 1ML SQ SCH (07:56)
[2018-06-14] MEDS: SODIUM CHLORIDE 0.9% 1,000 ML IV SCH (07:56)
[2018-06-14] MEDS: [UNRECOGNIZED DRUG - MIXTURE] PO SCH (07:56)
[2018-06-14] MEDS: LEVOTHYROXINE 75 MCG TABLET PO SCH (07:56)
== END 2018-06-14 13:55 | disposition home or self-care (01) | DRG 682 ==
LOC: ED 09:10 → EDIP 11:25 → 5SO 13:08 → DCLOUNGE 06-14 13:40
PROVIDERS: ADMIT Internal Medicine; ATTEND Hospitalist
DX: N17.9 Acute kidney failure, unspecified (principal); E43 Unspecified severe protein-calorie malnutrition; I13.2 Hypertensive heart and chronic kidney disease with heart failure and with stage 5 chronic kidney disease, or end stage renal disease; I50.42 Chronic combined systolic (congestive) and diastolic (congestive) heart failure; E87.2 Acidosis; E87.1 Hypo-osmolality and hyponatremia; N18.5 Chronic kidney disease, stage 5; E11.42 Type 2 diabetes mellitus with diabetic polyneuropathy; E11.22 Type 2 diabetes mellitus with diabetic chronic kidney disease; D69.6 Thrombocytopenia, unspecified; D63.8 Anemia in other chronic diseases classified elsewhere; N25.0 Renal osteodystrophy; E78.5 Hyperlipidemia, unspecified; E55.9 Vitamin D deficiency, unspecified; E11.51 Type 2 diabetes mellitus with diabetic peripheral angiopathy without gangrene; E03.9 Hypothyroidism, unspecified; N27.1 Small kidney, bilateral; I25.2 Old myocardial infarction; N40.0 Benign prostatic hyperplasia without lower urinary tract symptoms; N31.9 Neuromuscular dysfunction of bladder, unspecified; W18.39XA Other fall on same level, initial encounter; H54.8 Legal blindness, as defined in USA; G40.909 Epilepsy, unspecified, not intractable, without status epilepticus; Z89.511 Acquired absence of right leg below knee; Z87.891 Personal history of nicotine dependence; Z87.440 Personal history of urinary (tract) infections; Z86.73 Personal history of transient ischemic attack (TIA), and cerebral infarction without residual deficits; Z83.3 Family history of diabetes mellitus; Z79.4 Long term (current) use of insulin; Z95.0 Presence of cardiac pacemaker; Y93.89 Activity, other specified; Y92.89 Other specified places as the place of occurrence of the external cause; Y99.8 Other external cause status; Z89.421 Acquired absence of other right toe(s); Z68.20 Body mass index [BMI] 20.0-20.9, adult
CPT/HCPCS: 36415; 70450; 71045; 76770; 78582; 80048; 80053; 80069; 81001; 82040; 82306; 82570; 82728; 82962; 83540; 83550; 83605; 83735; 83880; 83970; 84100; 84156; 84443; 84484; 84550; 85025; 85045; 85379; 85610; 85730; 87324; 93005; 93306; 99291; G0378; J1644; A9540; A9558; C9898; J1815; J7030